=== PATIENT | female | born 1955 | race Caucasian/White ===

== ENCOUNTER → 2016-05-23 | Day surgery (SDC) | payer OTHER ==
[~2016-05-23] MED LIST: Lactated Ringers 1,000 ML IV SCH; Propofol 200 MG/20 ML SDV IV ONE
[2016-05-23 12:10] VITALS: BP 141/69
--- NOTE | 2016-05-23 14:54 | OR ---
DATE OF OPERATION: 05/23/2016 PREOPERATIVE DIAGNOSIS: 1. GASTROESOPHAGEAL REFLUX DISEASE. 2. ABDOMINAL PAIN. POSTOPERATIVE DIAGNOSIS: 1. GASTROESOPHAGEAL REFLUX DISEASE. 2. ABDOMINAL PAIN. SURGEON: Sanket Lockhart MD PROCEDURE: ESOPHAGOGASTRODUODENOSCOPY WITH BIOPSIES X2, ARIELLE. ANESTHESIA: [employer] due to chronic GERD. COMPLICATIONS: None. SPECIMEN: 1. Duodenal biopsy x1. 2. Antral ARIELLE. 3. Distal esophageal biopsy. FINDINGS: 1. Full-length EGD. 2. Small hiatal hernia with reflux esophagitis, mild, no stricturing, ulceration, or Luna's changes. 3. Mild duodenitis in the duodenal bulb. RECOMMENDATIONS: Put the patient on trial of proton pump therapy. She should have close followup with her primary physician for improvement in symptoms. INDICATIONS: The patient has been having some ongoing GI issues with dyspepsia, reflux symptoms etc. Dr. Mace recommended EGD. DESCRIPTION OF PROCEDURE: The patient was prepped and draped, placed in the left lateral decubitus position. A lubricated Olympus gastroscope was inserted over a bit, and easily intubated in the esophagus. Esophageal lining was benign most of its course. There is a hiatal hernia present, small in size. The Z- line is crisp and sharp around 37.5 cm. There is a very faint amount of distal esophagitis with some linear ulceration mild in severity. Biopsy of that area was taken. The scope was advanced into the stomach through the pylorus and into the third portion of duodenum. Second and third portion of duodenum were benign. The duodenal bulb had some mild inflammation without ulceration. Biopsy x1 was taken. The scope was brought back into the stomach and retroflexed. The upper fundus and cardia were otherwise benign. No signs of any significant peptic ulcer disease in the gastric lining. No polyps, masses, ulcerations, or otherwise, CLOtest was obtained. Air was then suctioned and the scope was removed without complications. MENDEZ/NEDRA /[id number]
== END ==
LOC: CC.SDS 10:51
PROVIDERS: ATTEND Family Medicine
DX: K21.0 Gastro-esophageal reflux disease with esophagitis (principal); K44.9 Diaphragmatic hernia without obstruction or gangrene; K29.80 Duodenitis without bleeding; Z88.6 Allergy status to analgesic agent
CPT/HCPCS: 43239; 87081; J2704; J7120

== ENCOUNTER 2024-04-18 11:43 | Emergency (ER) | payer MEDICARE, BC ==
[2024-04-18] MEDS ORDERED: Ondansetron 4 MG/2 ML SDV IVPUSH PRN (11:55)
[2024-04-18] MEDS ORDERED: Sodium Chloride 0.9% 10 ML Syringe FLUSH PRN (11:55)
[2024-04-18] MEDS: fentaNYL 50 MCG/ML SDV IVPUSH ONE ×2 (12:03→12:24)
[2024-04-18] MEDS: Sodium Chloride 0.9% 250 ML IV SCH (12:29)
[2024-04-18] MEDS: Midazolam 1 MG/ML 2 ML SDV IVPUSH ONE (12:31)
[2024-04-18] MEDS: Metoprolol Tartrate 5 MG/5 ML SDV IVPUSH ONE ×2 (12:44→13:11)
[2024-04-18] MEDS: Diltiazem 25 MG/5 ML SDV IVPUSH ONE (13:37)
[2024-04-18 14:16] VITALS: BP 115/66; PULSE 94
== END 2024-04-18 14:07 | disposition home or self-care (01) ==
LOC: CC.ED 11:43
DX: S43.015A Anterior dislocation of left humerus, initial encounter (principal); I48.91 Unspecified atrial fibrillation; Z88.5 Allergy status to narcotic agent; Z90.49 Acquired absence of other specified parts of digestive tract; Z79.899 Other long term (current) drug therapy; W00.0XXA Fall on same level due to ice and snow, initial encounter; Y93.89 Activity, other specified
CPT/HCPCS: 23650; 73030-LT; 96374; 96375; 99283-25; J2250; J3010; J3490